=== PATIENT | female | born 1980 | race Caucasian/White ===

== ENCOUNTER 2023-07-27 17:36 | Emergency (ER) | payer MEDICAID ==
[~2023-07-27] VITALS: Ht 160 cm; Wt 79.4 kg
[2023-07-27 18:00] VITALS: BP 127/76; PULSE 92; RESP 14; TEMP 97.8; O2SAT 100
[2023-07-27] MEDS ORDERED: ACET-10509 PO (21:07)
[2023-07-27] MEDS ORDERED: NAPR-1704 PO (21:07)
== END 2023-07-27 21:40 | disposition home or self-care (01) ==
LOC: MED 17:36
DX: S00.03XA Contusion of scalp, initial encounter (principal); V19.88XA Pedal cyclist (driver) (passenger) injured in other specified transport accidents, initial encounter; Y93.89 Activity, other specified; Y92.89 Other specified places as the place of occurrence of the external cause; Y99.8 Other external cause status
CPT/HCPCS: 70450; 81025; 99284